=== PATIENT | male | born 1975 | race Asian ===

== ENCOUNTER 2019-11-07 09:03 | Emergency (ER) | payer OTHER ==
[~2019-11-07] VITALS: Ht 170.2 cm; Wt 92.7 kg
[2019-11-07] MEDS ORDERED: SIMV-261 PO (09:28)
[2019-11-07] MEDS ORDERED: HYDR25TA84 PO (09:28)
[2019-11-07] MEDS ORDERED: ALOG25TA2 PO (09:28)
[2019-11-07] MEDS ORDERED: ACAR50TA2 PO (09:28)
[2019-11-07] MEDS ORDERED: GLIP10 PO (09:28)
[2019-11-07] MEDS ORDERED: LISI-662 PO (09:28)
[2019-11-07] MEDS ORDERED: METF-960 PO (09:28)
[2019-11-07] MEDS ORDERED: AMLO5TAB9 PO (09:28)
[2019-11-07 09:32] LABS: GLUCOSE,POINT OF CARE 257 MG/DL (70-110)
[2019-11-07] MEDS ORDERED: POVIDONE-IODINE 10% 15 ML SOLUTION UD ONE ×2 (11:18→11:21)
[2019-11-07] MEDS ORDERED: SULFAMETHOX/TRIMETH DS 800-160 MG/TABLET PO ONE (11:45)
[2019-11-07] MEDS ORDERED: IBUPROFEN 600 MG TABLET PO ONE (11:45)
[2019-11-07 11:55] VITALS: BP 130/91
== END 2019-11-07 12:23 | disposition home or self-care (01) ==
LOC: EMS 09:06
DX: L03.011 Cellulitis of right finger (principal); E11.9 Type 2 diabetes mellitus without complications; I10 Essential (primary) hypertension; Z88.0 Allergy status to penicillin; Z79.899 Other long term (current) drug therapy; Z79.84 Long term (current) use of oral hypoglycemic drugs
CPT/HCPCS: 26010; 87070; 87205

== ENCOUNTER 2019-11-08 18:20 | Emergency (ER) | payer OTHER ==
[~2019-11-08] VITALS: Ht 170.2 cm; Wt 94.1 kg
[~2019-11-08 18:20] MED LIST: ACAR50TA2 PO; ALOG25TA2 PO; AMLO5TAB9 PO; GLIP10 PO; HYDR25TA84 PO; LISI-662 PO; METF-960 PO; SIMV-261 PO
[2019-11-08 20:39] VITALS: BP 120/71
== END 2019-11-08 20:41 | disposition home or self-care (01) ==
LOC: EMS 18:20
DX: L03.011 Cellulitis of right finger (principal); E11.9 Type 2 diabetes mellitus without complications; I10 Essential (primary) hypertension; Z98.890 Other specified postprocedural states; Z88.0 Allergy status to penicillin; Z79.899 Other long term (current) drug therapy